=== PATIENT | male | born 1975 | race Caucasian/White ===

== ENCOUNTER 2018-10-16 01:28 | Emergency (ER) | payer OTHER ==
[~2018-10-16] VITALS: Ht 190.5 cm; Wt 93.2 kg
[2018-10-16 02:29] LABS: BASOPHILS # (AUTO) 0.1 X10'3 (0-0.2); BASOPHILS % (AUTO) 0.8 % (0-1); EOSINOPHILS # (AUTO) 0.2 X10'3 (0-0.9); EOSINOPHILS % (AUTO) 2.6 % (0-6); HEMATOCRIT 42.8 % (42.0-52.0); HEMOGLOBIN 14.6 g/dl (14.0-17.9); LYMPHOCYTES # (AUTO) 3.4 X10'3 (1.1-4.8); LYMPHOCYTES % (AUTO) 43.1 % (21-51); MEAN CORPUSCULAR HEMOGLOBIN 32.4 PG (27.0-31.0); MEAN CORPUSCULAR HGB CONC 34.1 g/dL (33.0-36.5); MEAN CORPUSCULAR VOLUME 94.8 FL (78-98); MEAN PLATELET VOLUME 9.5 FL (7.4-10.4); MONOCYTES # (AUTO) 0.6 X10'3 (0-0.9); MONOCYTES % (AUTO) 7.8 % (2-12); NEUTROPHILS # (AUTO) 3.6 X10'3 (1.8-7.7); NEUTROPHILS % (AUTO) 45.7 % (42-75); PLATELET COUNT 181 X10'3 (140-440); RED BLOOD COUNT 4.51 X10'6 (4.70-6.10); RED CELL DISTRIBUTION WIDTH 12.9 % (11.5-14.5)
[2018-10-16 02:39] LABS: ALANINE AMINOTRANSFERASE 35 U/L (12-78); ALBUMIN 3.7 G/DL (3.4-5.0); ALBUMIN/GLOBULIN RATIO 1.1 (1.1-1.5); ALKALINE PHOSPHATASE 62 IU/L (46-116); ANION GAP 13 (8-16); ASPARTATE AMINO TRANSFERASE 18 U/L (10-37); BILIRUBIN,TOTAL 0.2 MG/DL (0.1-1.0); BLOOD UREA NITROGEN 16 MG/DL (7-18); BUN/CREATININE RATIO 18.8 (5.4-32.0); CALCIUM 8.8 MG/DL (8.5-10.1); CHLORIDE 105 MMOL/L (99-107); CREATININE 0.85 MG/DL (0.60-1.10); GLUCOSE 138 MG/DL (70-104); POTASSIUM 3.6 MMOL/L (3.5-5.1); SODIUM 140 MMOL/L (135-145); TOTAL CARBON DIOXIDE 22.1 MMOL/L (24-32); eGFR > 90 ML/MIN
[2018-10-16 02:40] LABS: PARTIAL THROMBOPLASTIN TIME 30 SECONDS (22-32); PROTHROMBIN TIME 9.8 SECONDS (9.0-12.0)
[2018-10-16 05:51] VITALS: BP 154/115
== END 2018-10-16 05:53 | disposition home or self-care (01) ==
LOC: ER 01:29
DX: R07.89 Other chest pain (principal); R06.02 Shortness of breath; I10 Essential (primary) hypertension; F17.210 Nicotine dependence, cigarettes, uncomplicated
CPT/HCPCS: 36415; 71045; 80053; 84484; 85025; 85610; 85730; 93005; 99284

== ENCOUNTER 2019-01-29 19:01 | Emergency (ER) | payer OTHER ==
[~2019-01-29] VITALS: Ht 190.5 cm; Wt 127.3 kg
[2019-01-29 19:07] VITALS: BP 146/115
[2019-01-29] MEDS ORDERED: LIDOcaine 1% w/epiNEPHrine 1:200,000 30ml vial IM ONE (20:05)
[2019-01-29] MEDS ORDERED: TETanus/Pertussis (Acell)/Diphther VAC/PF (Tdap-Adult) 0.5ml syringe IM ONE (20:05)
[2019-01-29] MEDS ORDERED: bacitracin 15gm ointment TP ONE (20:05)
[2019-01-29] MEDS ORDERED: sulfamethoxazole/trimethoprim DS (800/160mg) tablet PO ONE (20:45)
[2019-01-29] MEDS ORDERED: SULF1TAB49 PO (20:45)
== END 2019-01-29 21:02 | disposition home or self-care (01) ==
LOC: ER 19:03
DX: S91.312A Laceration without foreign body, left foot, initial encounter (principal); I10 Essential (primary) hypertension; Z79.899 Other long term (current) drug therapy; W27.8XXA Contact with other nonpowered hand tool, initial encounter; Y93.89 Activity, other specified; Y92.89 Other specified places as the place of occurrence of the external cause; Y99.8 Other external cause status
CPT/HCPCS: 12002; 73630; 90471; 99283

== ENCOUNTER 2019-02-09 16:44 | Emergency (ER) | payer OTHER ==
[~2019-02-09] VITALS: Ht 188 cm; Wt 123.0 kg
[~2019-02-09 16:44] MED LIST: SULF1TAB49 PO
[2019-02-09 16:46] VITALS: BP 146/109
== END 2019-02-09 17:18 | disposition home or self-care (01) ==
LOC: ER 16:45
DX: S91.312D Laceration without foreign body, left foot, subsequent encounter (principal); I10 Essential (primary) hypertension; W27.8XXD Contact with other nonpowered hand tool, subsequent encounter
CPT/HCPCS: 99282

== ENCOUNTER 2019-02-15 15:21 | Emergency (ER) | payer OTHER ==
[~2019-02-15] VITALS: Ht 188 cm; Wt 124.1 kg
[2019-02-15 15:32] VITALS: BP 153/119
== END 2019-02-15 16:28 | disposition home or self-care (01) ==
LOC: ER 15:22
DX: S91.312D Laceration without foreign body, left foot, subsequent encounter (principal); I10 Essential (primary) hypertension; Z88.0 Allergy status to penicillin; W27.8XXD Contact with other nonpowered hand tool, subsequent encounter
CPT/HCPCS: 99282

== ENCOUNTER 2022-04-03 16:18 | Emergency (ER) | payer OTHER ==
[~2022-04-03] VITALS: Ht 188 cm; Wt 104.5 kg
[2022-04-03 16:44] LABS: CLARITY,URINE SLIGHTLY CLOUDY (Clear); COLOR,URINE YELLOW (Yellow); GLUCOSE, URINE NEGATIVE (Neg); KETONES,URINE NEGATIVE (Neg); LEUKOCYTE ESTERASE ,URINE LARGE (Neg); NITRITES, URINE POSITIVE (Neg); OCCULT BLOOD,URINE LARGE (Neg); PH,URINE 7.5 (4.8-8.0); PROTEIN,URINE 100 mg/dl (Neg)
[2022-04-03 16:50] LABS: UA COLLECTION TYPE CLN CATCH MIDSTREAM
[2022-04-03 16:52] LABS: BASOPHILS # (AUTO) 0.1 X10'3 (0-0.2); BASOPHILS % (AUTO) 0.3 % (0-1); EOSINOPHILS % (AUTO) 0.1 % (0-6); HEMATOCRIT 42.5 % (42.0-52.0); HEMOGLOBIN 14.7 g/dl (14.0-17.9); LYMPHOCYTES % (AUTO) 12.1 % (21-51); MEAN CORPUSCULAR HEMOGLOBIN 34.3 PG (27.0-31.0); MEAN CORPUSCULAR HGB CONC 34.5 g/dL (33.0-36.5); MEAN CORPUSCULAR VOLUME 99.2 FL (78-98); MONOCYTES # (AUTO) 1.3 X10'3 (0-0.9); MONOCYTES % (AUTO) 7.9 % (2-12); NEUTROPHILS # (AUTO) 13.3 X10'3 (1.8-7.7); NEUTROPHILS % (AUTO) 79.6 % (42-75); PLATELET COUNT 149 X10'3 (140-440); RED BLOOD COUNT 4.28 X10'6 (4.70-6.10); RED CELL DISTRIBUTION WIDTH 13.6 % (11.5-14.5); WHITE BLOOD COUNT 16.7 X10'3 (4.5-11.0)
[2022-04-03 16:52] LABS: BACTERIA,URINE 2+ /HPF (Neg); RBC,URINE 50-100 /HPF (0-2); WBC,URINE TNTC /HPF (0-4)
[2022-04-03 16:56] LABS: RENAL CELLS, URINE FEW /HPF; SQUAMOUS EPITHELIAL CELL,UR NONE SEEN /LPF (FEW)
[2022-04-03 16:59] LABS: ALANINE AMINOTRANSFERASE 25 U/L (12-78); ALBUMIN 3.6 G/DL (3.4-5.0); ALBUMIN/GLOBULIN RATIO 0.9 (1.1-1.5); ALKALINE PHOSPHATASE 66 IU/L (46-116); ANION GAP 12 (8-16); ASPARTATE AMINO TRANSFERASE 15 U/L (10-37); BILIRUBIN,TOTAL 0.9 MG/DL (0.1-1.0); BLOOD UREA NITROGEN 10 MG/DL (7-18); BUN/CREATININE RATIO 9.2 (5.4-32.0); CALCIUM 8.9 MG/DL (8.5-10.1); CHLORIDE 100 MMOL/L (99-107); CREATININE 1.09 MG/DL (0.60-1.10); GLUCOSE 119 MG/DL (70-104); POTASSIUM 3.6 MMOL/L (3.5-5.1); SODIUM 134 MMOL/L (135-145); TOTAL CARBON DIOXIDE 22.1 MMOL/L (24-32); TOTAL PROTEIN 7.7 G/DL (6.4-8.2); eGFR 73 ML/MIN
[2022-04-03] MEDS ORDERED: CefTRIAXone 2gm/D5W 50ml BAG 50 ML IV ONE (18:50)
[2022-04-03] MEDS ORDERED: normal saline 1000ML IV soln IV ONE (18:50)
[2022-04-03] MEDS ORDERED: amLODIPine 5mg tablet PO ONE (20:20)
[2022-04-03] MEDS ORDERED: AMLO5TAB4 PO (20:22)
[2022-04-03] MEDS ORDERED: CEPH250T PO (20:22)
[2022-04-03 20:42] VITALS: BP 153/100
[2022-04-05 07:13] LABS: PSA, FREE 2.55 ng/mL
== END 2022-04-03 20:49 | disposition home or self-care (01) ==
LOC: ER 16:18
DX: N39.0 Urinary tract infection, site not specified (principal); I10 Essential (primary) hypertension; R10.2 Pelvic and perineal pain; R31.9 Hematuria, unspecified; R50.9 Fever, unspecified; Z88.0 Allergy status to penicillin; Z79.2 Long term (current) use of antibiotics; Z79.899 Other long term (current) drug therapy
CPT/HCPCS: 36415; 80053; 81001; 83605; 84145; 84153; 84154; 85025; 87040; 87077; 87088; 87186; 93005; 96365; 99284; J0696; J7030

== ENCOUNTER 2023-09-11 10:57 | Emergency (ER) | payer OTHER ==
[~2023-09-11] VITALS: Ht 188 cm; Wt 113.0 kg
[~2023-09-11 10:57] MED LIST changes: +AMLO5TAB4 PO; -SULF1TAB49 PO
[2023-09-11] MEDS: CefTRIAXone 1000mg IM Kit (w/lidocaine diluent) IM ONE (13:26)
[2023-09-11 13:34] LABS: BILIRUBIN,URINE NEGATIVE (Neg); CLARITY,URINE CLOUDY (Clear); COLOR,URINE YELLOW (Yellow); GLUCOSE, URINE NEGATIVE (Neg); KETONES,URINE NEGATIVE (Neg); LEUKOCYTE ESTERASE ,URINE MODERATE (Neg); NITRITES, URINE POSITIVE (Neg); OCCULT BLOOD,URINE SMALL (Neg); PROTEIN,URINE NEGATIVE (Neg); UROBILINOGEN,URINE 0.2 E.U/dL (0.2-1.0)
[2023-09-11 13:47] LABS: UA COLLECTION TYPE CLN CATCH MIDSTREAM
[2023-09-11 13:48] LABS: BACTERIA,URINE 2+ /HPF (Neg); SQUAMOUS EPITHELIAL CELL,UR FEW /LPF (FEW); WBC,URINE TNTC /HPF (0-4)
[2023-09-11 13:49] LABS: WBC CLUMPS,URINE FEW /HPF (NEGATIVE)
[2023-09-11] MEDS ORDERED: DOXY150T3 PO (14:00)
[2023-09-11 14:20] VITALS: BP 170/108; PULSE 84; RESP 16; TEMP 98.1; O2SAT 98
== END 2023-09-11 14:26 | disposition home or self-care (01) ==
LOC: ER 10:57
DX: N50.811 Right testicular pain (principal); I10 Essential (primary) hypertension; Z88.0 Allergy status to penicillin; Z79.899 Other long term (current) drug therapy
CPT/HCPCS: 76870; 81001; 87088; 87186; 93976; 96372; 99285; J0696; 87077